=== PATIENT | female | born 1970 | race Two or more races ===

== ENCOUNTER 2018-05-10 10:59 | Emergency (ER) | payer OTHER, MEDICAID ==
[~2018-05-10] VITALS: Ht 165.1 cm; Wt 99.8 kg
[2018-05-10 11:30] VITALS: BP 191/113
[2018-05-10] MEDS ORDERED: IOHEXOL 300 MG/ML 100ML BOTTLE IJ ONE (14:08)
== END 2018-05-10 16:45 | disposition home or self-care (01) ==
LOC: ER 10:59 → EDBD 10:59 → ER 16:45
DX: T83.020A Displacement of cystostomy catheter, initial encounter (principal); Z90.49 Acquired absence of other specified parts of digestive tract; Y84.6 Urinary catheterization as the cause of abnormal reaction of the patient, or of later complication, without mention of misadventure at the time of the procedure; Y92.89 Other specified places as the place of occurrence of the external cause
CPT/HCPCS: 51705; 76000